=== PATIENT | male | born 1980 | race American Indian/Alaskan Native ===

== ENCOUNTER 2018-09-06 14:11 | Emergency (ER) | payer BC, OTHER ==
[2018-09-06 14:40] VITALS: BP 126/83
[2018-09-06] MEDS ORDERED: IBUPROFEN PO ONE (15:45)
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
== END 2018-09-06 17:04 | disposition home or self-care (01) ==
LOC: ED 14:11
DX: S13.4XXA Sprain of ligaments of cervical spine, initial encounter (principal); S39.012A Strain of muscle, fascia and tendon of lower back, initial encounter; F17.200 Nicotine dependence, unspecified, uncomplicated; F14.90 Cocaine use, unspecified, uncomplicated; Z88.6 Allergy status to analgesic agent; V89.2XXA Person injured in unspecified motor-vehicle accident, traffic, initial encounter; Y93.89 Activity, other specified; Y92.488 Other paved roadways as the place of occurrence of the external cause; Y99.8 Other external cause status
CPT/HCPCS: 72040; 72100; 99283

== ENCOUNTER 2019-04-05 00:47 | Emergency (ER) | payer BC, OTHER ==
[2019-04-05] MEDS ORDERED: ASPIRIN PO ONE (00:56)
--- NOTE | 2019-04-05 01:17 | XRay Report ---
CHEST 1 VIEW INDICATION / CLINICAL INFORMATION: Chest Pain. COMPARISON: None available. FINDINGS: SUPPORT DEVICES: None. HEART / MEDIASTINUM: No significant abnormality. LUNGS / PLEURA: No significant pulmonary or pleural abnormality. No pneumothorax. ADDITIONAL FINDINGS: No significant additional findings. IMPRESSION: 1. No significant change Signer Name: Yung Sy MD Signed: 04/05/2019 1:13 AM Workstation Name: [id number]
[2019-04-05 01:39] LABS: Basophils # (Auto) 0.1 K/mm3 (0.0-0.1); Basophils % (Auto) 1.2 % (0.0-1.8); Eosinophils # (Auto) 0.2 K/mm3 (0.0-0.4); Eosinophils % (Auto) 4.3 % (0.0-4.3); Hematocrit 36.6 % (35.5-45.6); Hemoglobin 12.7 gm/dl (11.8-15.2); Lymphocytes # (Auto) 1.7 K/mm3 (1.2-5.4); Mean Corpuscular HGB Conc 35 % (32-34); Mean Corpuscular Volume 105 fl (84-94); Monocytes # (Auto) 0.3 K/mm3 (0.0-0.8); Monocytes % (Auto) 6.6 % (0.0-7.3); Platelet Count 227 K/mm3 (140-440); Red Blood Count 3.49 M/mm3 (3.65-5.03)
[2019-04-05 01:51] LABS: BUN/Creatinine Ratio 10; Blood Urea Nitrogen 8 mg/dL (9-20); Calcium 8.8 mg/dL (8.4-10.2); Hemolysis Index 12
[2019-04-05] MEDS ORDERED: KEPPRA PO ONE (02:30)
--- NOTE | 2019-04-05 02:31 | Emergency Department Report ---
ED General Adult HPI - General Chief complaint: Dizziness Stated complaint: DIZZINESS, SEIZURE MEDICATION Time Seen by Provider: 04/05/19 02:16 Source: patient, family, RN notes reviewed, old records reviewed Mode of arrival: Ambulatory Limitations: No Limitations - History of Present Illness Initial comments: This is a 38-year-old gentleman. The patient is not known to this provider previously. He has a history of seizure disorder, on Keppra, 500 mg, twice daily, he ran out of his medicine this week, and also has a history of chronic back pain. He presents to the ER with 2 complaints History of complaints is to have his Keppra refilled. His second complaint is lightheadedness and dizziness. This is painless. It is intermittent. It does not radiate anywhere. It does not have exacerbating or relieving factors. The patient has not passed out or lost consciousness. He denies physical pain. He denies DVT, pulmonary embolism risk factors. He denies other new injuries, denies other new complaints. He reports that he works mostly night shifts. He reports recreational cocaine consumption a few weeks ago. He smokes cigarettes every now and then. He denies urinary symptoms. -: Gradual Consistency: intermittent Improves with: none Worsens with: none - Related Data Previous Rx's Medication Instructions Recorded Last Taken Type Diclofenac Sodium 75 mg PO BID #20 tablet. 03/11/15 Unknown Rx methylPREDNISolone [Medrol Dose 4 mg PO .TAPER #1 pack 03/11/15 Unknown Rx Wilver] Ibuprofen [Motrin] 600 mg PO Q8H PRN #20 tablet 09/06/18 Unknown Rx levETIRAcetam [Keppra TAB] 500 mg PO BID #60 tablet 04/05/19 Unknown Rx Allergies Allergy/AdvReac Type Severity Reaction Status Date / Time aspirin Allergy Unknown Verified 09/06/18 14:40 ED Review of Systems ROS: Stated complaint: DIZZINESS, SEIZURE MEDICATION Other details as noted in HPI Constitutional: denies: fever Eyes: denies: eye discharge ENT: denies: epistaxis Respiratory: denies: cough Cardiovascular: denies: chest pain, syncope Genitourinary: denies: dysuria Musculoskeletal: back pain (chronic lower back pain). denies: arthralgia Neurological: denies: headache ED Past Medical Hx - Past Medical History Previous Medical History?: Yes Hx Hypertension: Yes Hx Seizures: Yes (on Keppra) Additional medical history: Lumbar spondylosis - Surgical History Past Surgical History?: No - Social History Smoking Status: Current Every Day Smoker - Medications Home Medications: Home Medications Medication Instructions Recorded Confirmed Last Taken Type Diclofenac Sodium 75 mg PO BID #20 tablet. 03/11/15 Unknown Rx methylPREDNISolone [Medrol Dose 4 mg PO .TAPER #1 pack 03/11/15 Unknown Rx Wilver] Ibuprofen [Motrin] 600 mg PO Q8H PRN #20 tablet 09/06/18 Unknown Rx levETIRAcetam [Keppra TAB] 500 mg PO BID #60 tablet 04/05/19 Unknown Rx ED Physical Exam - General Limitations: No Limitations General appearance: alert, in no apparent distress - Head Head exam: Present: atraumatic, normocephalic - Eye Eye exam: Present: normal appearance, PERRL, EOMI, other (visual acuity intact to finger counting, color perception, reading at a close distance). Absent: nystagmus - ENT ENT exam: Present: normal exam, normal orophraynx, mucous membranes moist, normal external ear exam - Neck Neck exam: Present: normal inspection, full ROM. Absent: tenderness, meningismus - Respiratory Respiratory exam: Present: normal lung sounds bilaterally. Absent: respiratory distress - Cardiovascular Cardiovascular Exam: Present: regular rate, normal rhythm, normal heart sounds. Absent: bradycardia, tachycardia, irregular rhythm, systolic murmur, diastolic murmur, rubs, gallop - GI/Abdominal GI/Abdominal exam: Present: soft. Absent: distended, tenderness, guarding, rebound, rigid, pulsatile mass - Rectal Rectal exam: Present: deferred - Extremities Exam Extremities exam: Present: normal inspection, full ROM, other (2+ pulses noted in the bilateral upper, lower extremities. Compartments soft. No long bony tenderness. The pelvis is stable.). Absent: pedal edema, joint swelling, calf tenderness - Back Exam Back exam: Present: normal inspection, full ROM. Absent: tenderness, CVA tenderness (R), CVA tenderness (L), paraspinal tenderness, vertebral tenderness - Neurological Exam Neurological exam: Present: alert, oriented X3, normal gait (there is no past pointing. There is normal [id number]. There is negative pronator drift. There is a normal gait.), other (Extraocular movements intact. Tongue midline. No facial droop. Facial sensation intact to light touch in the V1, V2, V3 distribution bilaterally. 5 and 5 strength in 4 extremities.. Sensation is intact to light touch in 4 extremities.). Absent: motor sensory deficit - Psychiatric Psychiatric exam: Present: normal affect, normal mood - Skin Skin exam: Present: warm, dry, intact, normal color. Absent: rash ED Course Vital Signs 04/05/19 04/05/19 00:52 02:21 Temperature 98.3 F 98.1 F Pulse Rate 77 67 Respiratory 18 14 Rate Blood Pressure 116/77 [Left] O2 Sat by Pulse 98 98 Oximetry ED Medical Decision Making - Lab Data Result diagrams: 04/05/19 01:10 04/05/19 01:12 Vital Signs 04/05/19 04/05/19 00:52 02:21 Temperature 98.3 F 98.1 F Pulse Rate 77 67 Respiratory 18 14 Rate Blood Pressure 116/77 [Left] O2 Sat by Pulse 98 98 Oximetry Lab Results 04/05/19 04/05/19 Range/Units 01:10 01:12 WBC 4.2 L (4.5-11.0) K/mm3 RBC 3.49 L (3.65-5.03) M/mm3 Hgb 12.7 (11.8-15.2) gm/dl Hct 36.6 (35.5-45.6) % MCV 105 H (84-94) fl MCH 36 H (28-32) pg MCHC 35 H (32-34) % RDW 13.0 L (13.2-15.2) % Plt Count 227 (140-440) K/mm3 Lymph % (Auto) 40.0 H (13.4-35.0) % Hubbard % (Auto) 6.6 (0.0-7.3) % Eos % (Auto) 4.3 (0.0-4.3) % Baso % (Auto) 1.2 (0.0-1.8) % Lymph # 1.7 (1.2-5.4) K/mm3 Hubbard # 0.3 (0.0-0.8) K/mm3 Eos # 0.2 (0.0-0.4) K/mm3 Baso # 0.1 (0.0-0.1) K/mm3 Seg Neutrophils % 47.9 (40.0-70.0) % Seg Neutrophils # 2.0 (1.8-7.7) K/mm3 Sodium 144 (137-145) mmol/L Potassium 3.7 (3.6-5.0) mmol/L Chloride 105.6 (98-107) mmol/L Carbon Dioxide 26 (22-30) mmol/L Anion Gap 16 mmol/L BUN 8 L (9-20) mg/dL Creatinine 0.8 (0.8-1.5) mg/dL Estimated GFR > 60 ml/min BUN/Creatinine Ratio 10 % Glucose 113 H (75-100) mg/dL Calcium 8.8 (8.4-10.2) mg/dL Troponin T < 0.010 (0.00-0.029) ng/mL - EKG Data -: EKG Interpreted by Me EKG shows normal: sinus rhythm Rate: bradycardia - EKG Data 04/05/19 03:06 This is a sinus rhythm, bradycardia, 57 bpm, borderline left axis deviation, borderline left anterior fascicular block, high left ventricular voltage, there is no endorsement of chest pain, the EKG is abnormal, the EKG is not consistent with ST elevation myocardial infarction Do not have prior EKG available for comparison. - Radiology Data Radiology results: report reviewed, image reviewed interpreted by me: X-ray the chest is negative for acute disease. Differential diagnosis, including but not limited to: Orthostasis, vagal event, dehydration, medication refill, Assessment and plan: 38-year-old gentleman, not tachycardic, not hypoxic, no DVT or pulmonary embolus risk factors, perc negative. Has a normal and unremarkable physical exam and walks with a steady gait. GCS of 15, un remarkable laboratory studies. Do not suspect acute coronary syndrome based off of the history and physical, EKG unremarkable, troponin ordered prior to my evaluation and is negative. Patient low risk by the heart score. Patient is given a 1000 mg loading dose of Keppra. We will refill his medications. He'll be instructed to follow-up as an outpatient primary care doctor and/or neurologist. He is clinically sober at this time and walks with a steady gait. Critical care attestation.: If time is entered above; I have spent that time in minutes in the direct care o f this critically ill patient, excluding procedure time. ED Disposition Clinical Impression: Medication refill, Lightheadedness Disposition: DC-01 TO HOME OR SELFCARE Is pt being admited?: No Does the pt Need Aspirin: No Condition: Stable Additional Instructions: Take seizure medication as directed. Drink for 2-6 cups of water per day every 24 hours. Eat 3-5 meals per day. Follow-up with the primary care doctor or neurologist within the next month. If patient has a seizure, seek immediate medical attention, and do not drive for 6 months thereafter. Recommend patient did not consume cocaine or recreational drugs. Return to the emergency room right away with new, worsening or different symptoms, or symptoms not present on the initial emergency room evaluation. Referrals: LETICIA TERRAZAS MD [Primary Care Provider] - 3-5 Days GUNJAN MORA MD [Staff Physician] - 3-5 Days SHIRLENE NAVARRETE MD [Staff Physician] - 3-5 Days SCOTT GARCIA MD [Referring] - 3-5 Days DAVID GONZALES MD [Staff Physician] - 3-5 Days [facility] [Provider Group] - 3-5 Days [facility] [Provider Group] - 3-5 Days
[2019-04-05 03:41] VITALS: BP 124/78
== END 2019-04-05 03:20 | disposition home or self-care (01) ==
LOC: ED 00:47
DX: G40.909 Epilepsy, unspecified, not intractable, without status epilepticus (principal); R42 Dizziness and giddiness; Z76.0 Encounter for issue of repeat prescription; F17.200 Nicotine dependence, unspecified, uncomplicated; I10 Essential (primary) hypertension; M54.9 Dorsalgia, unspecified; G89.29 Other chronic pain; Z79.1 Long term (current) use of non-steroidal anti-inflammatories (NSAID); Z79.899 Other long term (current) drug therapy; Z88.6 Allergy status to analgesic agent
CPT/HCPCS: 36415; 71045; 80048; 82550; 83735; 84484; 85025; 93005; 93010; 99284

== ENCOUNTER 2019-10-25 05:03 | Emergency (ER) | payer OTHER ==
[2019-10-25 05:10] VITALS: BP 143/93
--- NOTE | 2019-10-25 05:25 | Emergency Department Report ---
ED Back Pain/Injury HPI - General Chief Complaint: Back Pain/Injury Stated Complaint: BACK PAIN Time Seen by Provider: 10/25/19 05:15 Source: patient Mode of arrival: Ambulatory Limitations: No Limitations - History of Present Illness Initial Comments: This is a 39-year-old -[place] male who presents to the emergency room with low back pain. Patient states he was carrying a crate at work when he felt a sharp pain to the left lower back. Patient reports injury occurred around 0400 this morning while he was at work. Patient states he feels like he pulled something when he lifted crate. He reports numbness to left foot. States "my left foot feels ". Reports pain is worse with movement. Pain is improved with rest. Denies radiating pain, weakness, change in urinary or bowel pattern. MD Complaint: back pain -: This morning Time: 04:00 Similar Symptoms Previously: No Place: work Radiation: none Severity: severe Severity scale (0 -10): 9 Quality: stabbing Consistency: intermittent Improves With: supine Worsens With: movement Context: while lifting Associated Symptoms: denies: numbness, difficulty urinating, incontinence, fever/chills - Related Data Previous Rx's Medication Instructions Recorded Last Taken Type Diclofenac Sodium 75 mg PO BID #20 tablet. 03/11/15 Unknown Rx methylPREDNISolone [Medrol Dose 4 mg PO .TAPER #1 pack 03/11/15 Unknown Rx Wilver] levETIRAcetam [Keppra TAB] 500 mg PO BID #60 tablet 04/05/19 Unknown Rx Ibuprofen [Motrin 600 MG tab] 600 mg PO Q8H PRN #20 tablet 10/25/19 Unknown Rx Methocarbamol [Robaxin] 500 mg PO BID PRN #15 tablet 10/25/19 Unknown Rx Allergies Allergy/AdvReac Type Severity Reaction Status Date / Time aspirin Allergy Unknown Verified 09/06/18 14:40 ED Review of Systems ROS: Stated complaint: BACK PAIN Other details as noted in HPI Constitutional: denies: chills, fever Respiratory: denies: cough, shortness of breath, wheezing Cardiovascular: denies: chest pain, palpitations Gastrointestinal: denies: abdominal pain, nausea, diarrhea Musculoskeletal: back pain. denies: joint swelling, arthralgia Skin: denies: rash, lesions Neurological: denies: headache, weakness, paresthesias Psychiatric: denies: anxiety, depression ED Past Medical Hx - Past Medical History Lumbar spondylosis Family history: no significant family history ED Back Pain Physical Exam - Exam General: Vital signs noted. No distress. Alert and acting appropriately. Back/Abdomen: Yes Perilumbar Tenderness (Left TTP, no erythema or swelling, and. Negative C-spine, T-spine, and L-spine midline tenderness), No Abdominal Tenderness, No Perithoracic Tenderness, No Sacroiliac Tenderness, No Flank Tenderness, No Straight Leg Raise Pain Neuro: Yes Normal Sensation, Yes Normal DTR's, Yes Normal Gait, No Motor Weakness ED Course Vital Signs 10/25/19 05:07 Temperature 98.4 F Pulse Rate 89 Respiratory 18 Rate Blood Pressure 143/93 O2 Sat by Pulse 100 Oximetry ED Medical Decision Making - Lab Data Lab Results 10/25/19 Range/Units 06:13 Urine Opiates Screen Presumptive negative Urine Methadone Screen Presumptive negative Ur Barbiturates Screen Presumptive negative Ur Phencyclidine Scrn Presumptive negative Ur Amphetamines Screen Presumptive negative U Benzodiazepines Scrn Presumptive negative Urine Cocaine Screen Presumptive negative U Marijuana (THC) Screen Presumptive negative - Medical Decision Making 39-year-old male complaining of low back pain for 1 hour. Patient is nontoxic appearing and stable. Vitals are normal. Given analgesics. No abdominal or midline spinal tenderness on exam for signs of trauma. Negative straight leg test. Work-up: UDS which is unremarkable. Given history and exam, there is low suspicion for spinal fracture, acute spinal syndrome, cauda equina syndrome. Patient instructed to continue daily activities and limit according to pain. Start NSAIDs and topical NSAIDs. Follow-up with primary care doctor. He was given strict return precautions for delayed possible symptoms. Patient discharged with prompt follow-up with primary care physician in 2 to 3 days. Critical care attestation.: If time is entered above; I have spent that time in minutes in the direct care of this critically ill patient, excluding procedure time. ED Disposition Clinical Impression: Acute low back pain Qualifiers: Back pain laterality: left Sciatica presence: without sciatica Qualified Code(s): M54.5 - Low back pain Lumbago without sciatica Qualifiers: Chronicity: acute Back pain laterality: left Qualified Code(s): M54.5 - Low back pain Disposition: TO HOME OR SELFCARE Is pt being admited?: No Condition: Stable Instructions: Low Back Strain (ED), Arthralgia (ED) Additional Instructions: Rest Use ice or heat on affected area for 20 minutes and off for 2 hours. Take pain medication as needed for pain. Don't drive or operate heavy machinery while taking muscle relaxers because they may cause drowsiness. Follow up with Primary Care Provider in 2-3 days. Prescriptions: Ibuprofen [Motrin 600 MG tab] 600 mg PO Q8H PRN #20 tablet PRN Reason: Pain Methocarbamol [Robaxin] 500 mg PO BID PRN #15 tablet PRN Reason: Muscle Spasm Referrals: [facility] [Outside] - 3-5 Days [facility] [Outside] - 3-5 Days [facility] [Outside] - 3-5 Days PRAVEEN GARCIA MD [Staff Physician] - 3-5 Days Forms: Work/School Release Form(ED) Time of Disposition: 05:54
[2019-10-25] MEDS ORDERED: HYDROcodone/ACETAMINOPHEN 5-325 MG TAB PO ONE (05:39)
[2019-10-25 06:32] LABS: Amphetamine Screen,Urine PRESUMPTIVE NEGATIVE; Benzodiazepines Screen,Urine PRESUMPTIVE NEGATIVE; Cannabinoid Screen,Urine PRESUMPTIVE NEGATIVE; Cocaine Screen,Urine PRESUMPTIVE NEGATIVE; Methadone Screen,Urine PRESUMPTIVE NEGATIVE; Opiate Screen,Urine PRESUMPTIVE NEGATIVE
== END 2019-10-25 06:38 | disposition home or self-care (01) ==
LOC: ED 05:03
DX: M54.5 Low back pain (principal); Z79.899 Other long term (current) drug therapy; Z88.6 Allergy status to analgesic agent
CPT/HCPCS: 80307